=== PATIENT | female | born 1950 | race Two or more races ===

== ENCOUNTER 2017-11-20 11:58 | Outpatient (CLI) | payer OTHER ==
[~2017-11-20 11:58] MED LIST: AMLODIPINE BESYL5 MG; CARVEDILOL25 MG; LANOXIN0.25 MG; LANTUS SOL100 UNIT/1; LASIX40 MG; NEURONTIN300 MG; SYNTHROID75 MCG; TRADJENTA5 MG; VASOTEC20 M1
== END 2017-11-20 12:10 | disposition home or self-care (01) ==
LOC: MAMO-SONO 11:58
DX: N60.11 Diffuse cystic mastopathy of right breast (principal); N60.12 Diffuse cystic mastopathy of left breast

== ENCOUNTER 2017-11-20 12:02 | Outpatient (CLI) | payer OTHER | END 2017-11-20 13:00 | disposition home or self-care (01) | LOC: NUCLEAR 12:02 | DX: M81.0 Age-related osteoporosis without current pathological fracture (principal) ==

== ENCOUNTER → 2018-06-30 | Outpatient (CLI) | payer OTHER | END | disposition home or self-care (01) | LOC: SONOGRAMA 15:15 | DX: E03.8 Other specified hypothyroidism (principal); E04.8 Other specified nontoxic goiter ==